=== PATIENT | female | born 1965 | race Caucasian/White ===

== ENCOUNTER 2023-07-02 09:33 | Day surgery (SDC) | payer OTHER ==
[2023-07-02] MEDS: FERRIC CARBOXYMALTOSE 750 MG in SODIUM CHLORIDE 250 ML IVPB ONE (09:45)
[2023-07-02] MEDS: CYANOCOBALAMIN (VITAMIN B-12) 1000 MCG/1 ML VIAL IM ONE (10:29)
[2023-07-02 13:23] VITALS: RESP 18; TEMP 98.1
[2023-07-02 13:28] VITALS: BP 132/78; PULSE 74
== END 2023-07-02 11:00 | disposition home or self-care (01) ==
LOC: EDBD → JONCNONCHE 09:33 → J7W 09:33 → JONCNONCHE 11:00
PROVIDERS: ATTEND Internal Medicine Hematology & Oncology
PROC: 3E033GC Introduction of Other Therapeutic Substance into Peripheral Vein, Percutaneous Approach (ICD-10-PCS; principal; 2023-07-02)
DX: D50.9 Iron deficiency anemia, unspecified (principal)
CPT/HCPCS: 96365; J1439

== ENCOUNTER 2023-08-02 09:58 | Day surgery (SDC) | payer OTHER ==
[~2023-08-02 09:58] MED LIST: FERRIC CARBOXYMALTOSE 750 MG in SODIUM CHLORIDE 250 ML IVPB ONE
[2023-08-02] MEDS: FERRIC CARBOXYMALTOSE 750 MG in SODIUM CHLORIDE 250 ML IVPB ONE (10:30)
[2023-08-02 11:07] VITALS: TEMP 98.3
[2023-08-02 11:16] VITALS: BP 134/62; PULSE 77; RESP 18
== END 2023-08-02 11:45 | disposition home or self-care (01) ==
LOC: EDBD → JONCNONCHE 09:58 → J7W 09:58 → JONCNONCHE 11:45
PROVIDERS: ATTEND Internal Medicine Hematology & Oncology
PROC: 3E033GC Introduction of Other Therapeutic Substance into Peripheral Vein, Percutaneous Approach (ICD-10-PCS; principal; 2023-08-02)
DX: D50.9 Iron deficiency anemia, unspecified (principal)
CPT/HCPCS: 96365; J1439